=== PATIENT | female | born 1980 | race African-American/Black ===

== ENCOUNTER 2017-06-22 12:21 | Inpatient (IN) | payer OTHER ==
--- NOTE | 2017-06-22 12:30 | PDOC ---
History of Present Illness - General Chief Complaint: Blood Pressure Problem Stated Complaint: ABD PAIN(POSSIBLE 8 MONTHS PREG) Time Seen by Provider: 06/22/17 12:29 History Source: Patient Exam Limitations: No Limitations - History of Present Illness Initial Comments: 06/22/17 13:15 [id number] patient with history of hypertension developed since last 6 years ago and persistent since then, coming for PCp after she was told she was with hypertension and told to come to ER. She wasn't aware she was until today. She just got health insurance back and wasn't able to afford seeing a doctor and getting her prescription (amlodipine and hydrochlorothiazide). Doesn't remember being told she ever had preeclampsia. No history of seizure. LAst was done by . Past History - Past Medical History Allergies/Adverse Reactions: Allergies Allergy/AdvReac Type Severity Reaction Status Date / Time No Known Allergies Allergy Unverified 06/22/17 12:36 Home Medications: Ambulatory Orders Amlodipine Besylate [Norvasc -] 5 mg PO DAILY 06/22/17 Hydrochlorothiazide [Hctz -] 25 mg PO DAILY 06/22/17 Review of Systems - Review of Systems Able to Perform ROS?: Yes Constitutional: No: Symptoms Reported HEENTM: No: Symptoms Reported Respiratory: No: Symptoms reported Cardiac (ROS): No: Symptoms Reported ABD/GI: No: Symptoms Reported : No: Symptoms Reported Musculoskeletal: No: Symptoms Reported Integumentary: No: Symptoms Reported Neurological: No: Symptoms reported Endocrine: No: Symptoms Reported All Other Systems: Reviewed and Negative *Physical Exam - Physical Exam General Appearance: Yes: Nourished, Appropriately Dressed. No: Apparent Distress HEENT: positive: EOMI, ANA, Normal ENT Inspection Neck: positive: Trachea midline, Normal Thyroid. negative: Tender Respiratory/Chest: positive: Lungs Clear, Normal Breath Sounds. negative: Chest Tender Cardiovascular: positive: Regular Rhythm, Regular Rate, S1, S2 Gastrointestinal/Abdominal: positive: Soft, Decreased BS, Protuberent (gravid), Distended, Other (fundus measure at approx 34 weeks). negative: Tender Musculoskeletal: positive: Normal Inspection Extremity: positive: Normal Capillary Refill, Normal Inspection Neurologic: positive: Fully Oriented, Alert, Normal Mood/Affect, Normal Response , Motor Strength 10/28 ED Treatment Course - LABORATORY CBC & Chemistry Diagram: 06/22/17 12:45 06/22/17 12:45 Medical Decision Making - Medical Decision Making 06/22/17 13:26 Determination of gestational age by transabdominal ultrasound labs and urine sent with magnesium to rule out preeclampsia/HELLP 06/22/17 15:00 OBGYN U/s: There is a single live intrauterine with measurements corresponding to a gestational age of 31 weeks 3 days. A heart rate of 138 BPM was calculated. An estimated weight of 4 lbs. 4 oz was also calculated. The placenta is fundal in location. An adequate amount of amniotic fluid is identified within an SERGEY of 15.5 cm. The fetus is in a vertex presentation at the present time. A cervical length of 5.5 cm was also measured. There is a solid mass within the left lateral aspect of the uterus consistent with a leiomyoma. This fibroid measures 4.0 x 3.1 x 3.8 cm BP reduced to 128/80 followed labetalol. All other labs wnl Labor and delivery called. Patient signed out and accepted to l&d *DC/Admit/Observation/Transfer Diagnosis at time of Disposition: 31 to 32 weeks gestation of , Hypertension - Discharge Dispostion Disposition: HOME Admit: Yes - Referrals - Patient Instructions Printed Discharge Instructions: DI for Pre-eclampsia Additional Instructions: Please go directly to labor and delivery upstairs for further evaluation. - Post Discharge Activity
[2017-06-22 12:36] VITALS: BMI 35.1
[2017-06-22] MEDS ORDERED: LABETALOL HCL 5 MG/1 ML (100MG/20 ML VIAL) IVPUSH ONE ×3 (12:58→14:41)
[2017-06-22 13:00] LABS: BASO % 0.7 % (0-2.0); EOS % 2.6 % (0-4.5); HEMATOCRIT 37.9 % (32.4-45.2); HEMOGLOBIN 12.4 GM/dL (10.7-15.3); LYMPH % 17.9 % (8-40); MCH 28.7 pg (25.7-33.7); MCHC 32.7 g/dl (32.0-36.0); MEAN CELL VOLUME 87.8 fl (80-96); MEAN PLT VOLUME 8.6 fl (7.5-11.1); NEUT % 68.8 % (42.8-82.8); PLATELET COUNT 262 K/MM3 (134-434); RBC 4.32 M/mm3 (3.60-5.2); RDW 13.8 % (11.6-15.6); WHITE BLOOD COUNT 7.6 K/mm3 (4.0-10.0)
[2017-06-22] MEDS ORDERED: LABETALOL HCL 5 MG/1 ML (200MG/40ML VIAL) IVPB ONE (13:15)
--- NOTE | 2017-06-22 13:17 | PDOC ---
Attending Attestation - HPI HPI: 06/22/17 13:51 Pt is a 37 yo F () with a PMHx of HTN who presents to the ED with elevated blood pressure today. Patient was seen in her [facility] for care and routine visit. As per EMS, patients urine was positive for protein and was sent to the ED for further evaluation. Patient takes Norvasc for her HTN however stopped it due to her . Patient denies any vaginal bleeding, vaginal discharge or cramping. Upon evaluation, patients vital signs significant for 183/123 BP and 103 HR. - Physicial Exam PE: 06/22/17 13:51 GENERAL: Awake, alert, and fully oriented, in no acute distress HEAD: No signs of trauma EYES: PERRLA, EOMI, sclera anicteric, conjunctiva clear ENT: Auricles normal inspection, hearing grossly normal, nares patent, oropharynx clear without exudates. Moist mucosa NECK: Normal ROM, supple, no lymphadenopathy, JVD, or masses LUNGS: Breath sounds equal, clear to auscultation bilaterally. No wheezes, and no crackles HEART: Regular rate and rhythm, normal S1 and S2, no murmurs, rubs or gallops ABDOMEN: +Gravid abdomen. Soft, nontender, normoactive bowel sounds. No guarding, no rebound. No masses EXTREMITIES: Normal range of motion. No clubbing or cyanosis. No cords, erythema, or tenderness. 1+ pitting edema bilaterally. NEUROLOGICAL: Cranial nerves II through XII grossly intact. Normal speech, normal gait SKIN: Warm, Dry, normal turgor, no rashes or lesions noted. - Medical Decision Making 06/22/17 13:51 Documentation prepared by Saira Duvall, acting as biomedical engineering technologist for Keith Vicente MD, MD/DO. <Saira Duvall - Last Filed: 06/22/17 13:51> - Resident Resident Name: Sergio Simeon - ED Attending Attestation I have performed the following: I have examined & evaluated the patient, The case was reviewed & discussed with the resident, I agree w/resident's findings & plan, Exceptions are as noted - Medical Decision Making 06/22/17 13:14 A portion of this note was written by my scribe, under my supervision. 37-year-old female with past medical history of hypertension, sent in from her doctor's office for elevated blood pressures in . The patient is unsure how long she may have been for. She had recently had no insurance but recently obtained insurance. She went to visit her doctor's office for routine visit and noted that she had elevated blood pressures and she tested positive and had 2+ on proteins in dipstick. Patient denies other symptoms of chest pain, short of breath, abdominal pain, vaginal bleeding. Was sent to the ED for further evaluation. She reports that she has not been taking her blood pressure medications as she had no insurance. Patient appears likely to be in third trimester. However, we will need to confirm with an ultrasound. We will attempt to control the blood pressure with labetalol. Labs, urinalysis to rule out hellp syndrome. Ultimately, the patient should be dispositioned to labor and delivery for heart monitoring and further [facility] [facility] management. 06/22/17 14:27 Ultrasound demonstrates single live uterine gestation at 31 weeks and 3 days. heart rates 138 bpm. Adequate amount of amniotic fluid. Also noticed is fibroid. CBC, BMP 06/22/17 12:45 06/22/17 12:45 CMP Sodium 138 mmol/L (136-145) 06/22/17 12:45 Potassium 4.4 mmol/L (3.5-5.1) 06/22/17 12:45 Chloride 104 mmol/L (98-107) 06/22/17 12:45 Carbon Dioxide 25 mmol/L (21-32) 06/22/17 12:45 Anion Gap 9 (8-16) 06/22/17 12:45 BUN 9 mg/dL (7-18) 06/22/17 12:45 Creatinine 0.7 mg/dL (0.55-1.02) 06/22/17 12:45 Creat Clearance w eGFR > 60 (>60) 06/22/17 12:45 Random Glucose 79 mg/dL (74-106) 06/22/17 12:45 Calcium 9.2 mg/dL (8.5-10.1) 06/22/17 12:45 Magnesium 1.9 mg/dL (1.8-2.4) 06/22/17 12:45 Total Bilirubin 0.2 mg/dL (0.2-1.0) 06/22/17 12:45 AST 17 U/L (15-37) 06/22/17 12:45 ALT 19 U/L (12-78) 06/22/17 12:45 Alkaline Phosphatase 177 U/L (45-117) H 06/22/17 12:45 Total Protein 6.3 g/dl (6.4-8.2) L 06/22/17 12:45 Albumin 2.4 g/dl (3.4-5.0) L 06/22/17 12:45 Beta HCG, Quant 13393.9 mIU/ml 06/22/17 12:45 Urine Test Results Urine Color Straw 06/22/17 13:34 Urine Appearance Slcloudy 06/22/17 13:34 Urine pH 7.0 (5.0-8.0) 06/22/17 13:34 Ur Specific Moro 1.006 (1.001-1.035) 06/22/17 13:34 Urine Protein Negative (NEGATIVE) 06/22/17 13:34 Urine Glucose (UA) Negative (NEGATIVE) 06/22/17 13:34 Urine Ketones Negative (NEGATIVE) 06/22/17 13:34 Urine Blood 1+ (NEGATIVE) H 06/22/17 13:34 Urine Nitrite Negative (NEGATIVE) 06/22/17 13:34 Urine Bilirubin Negative (NEGATIVE) 06/22/17 13:34 Bp is improving. Will send the patient to L&D for further management. <Keith Vicente - Last Filed: 06/22/17 14:27>
[2017-06-22 13:40] LABS: ALBUMIN 2.4 g/dl (3.4-5.0); ALK PHOS 177 U/L (45-117); ANION GAP 9 (8-16); BILIRUBIN,TOTAL 0.2 mg/dL (0.2-1.0); BLOOD UREA NITROGEN 9 mg/dL (7-18); CALCIUM 9.2 mg/dL (8.5-10.1); CHLORIDE 104 mmol/L (98-107); CO2 25 mmol/L (21-32); CREATININE 0.7 mg/dL (0.55-1.02); GLUCOSE,RANDOM 79 mg/dL (74-106); MAGNESIUM 1.9 mg/dL (1.8-2.4); POTASSIUM 4.4 mmol/L (3.5-5.1); SGOT/AST 17 U/L (15-37); SGPT/ALT 19 U/L (12-78); SODIUM 138 mmol/L (136-145); TOT PROT 6.3 g/dl (6.4-8.2)
[2017-06-22 14:14] LABS: URINE APPEARANCE SLCLOUDY; URINE BILIRUBIN NEGATIVE (NEGATIVE); URINE BLOOD 1+ (NEGATIVE); URINE COLOR STRAW; URINE GLUCOSE (UA) NEGATIVE (NEGATIVE); URINE KETONE NEGATIVE (NEGATIVE); URINE LEUK ESTERASE 2+ (NEGATIVE); URINE NITRITE NEGATIVE (NEGATIVE); URINE PROTEIN NEGATIVE (NEGATIVE); URINE UROBILINOGEN NEGATIVE mg/dL (0.2-1.0)
[2017-06-22 14:34] LABS: EPI CELLS RARE /HPF (FEW); URINE BACTERIA MODERATE /hpf (NONE SEEN); URINE MUCUS RARE; YEAST RARE
[2017-06-22] MEDS ORDERED: MAGNESIUM IVPB ONE (15:45)
[2017-06-22] MEDS ORDERED: SODIUM CHLORIDE 1,000 ML IV SCH (16:45)
[2017-06-22] MEDS ORDERED: LABETALOL HCL 200 MG TABLET (FP) ONE (17:08)
[2017-06-22] MEDS ORDERED: LABETALOL HCL 200 MG TABLET (FP) PO ONE (17:15)
--- NOTE | 2017-06-22 17:30 | HP ---
Past Medical History - Primary Care Physician PCP:: Deepa Oneill - Admission Chief Complaint: 37 yrs , pt is sent from ER as 31 weeks with Hypertension , , after treating her three times with IV labetalol 10 mg at 13.38 , 14.09 & 14.48 hr . In ER upon arrival BP recorded was 182/123, 163/127, 147/ 105, 146/101 after treatmment BP are recorded 140/93, 134/87, 136/90. after interrogation pt is upset BP again is 163/102,, 142/103 History of Present Illness: patient states she found out today that she was . she has h/o [place] hypertension for 6 years .. she is not on any meds for htn for past 1 year due to lack of insurance she went to see her PCP at [facility] last week , she was prescribed Norvasc 5 mg po daily, today she went for follow up . at 10.00 am [facility] in pcp off BP recorded 215/145 . pt denies any symptoms of headache or vomiting or blurred vision . She was prescribed HCTZ 25 mg . pt presented in the ER at [facility] by [facility] . diagnozed , sonogram was done reported as 31.3/7 weeks, sliup, fundal placenta, vx presentation , SERGEY 15.6cm , efw 4'4", cervical length 5.5cm also lt lateral leiomyoma 4x2.3x3.8 cm noted NO H/O CARE History Source: Patient Limitations to Obtaining History: No Limitations - Past Medical History EMERGENCY DEPARTMENT: No: Seizure, Syncope, TIA Cardiovascular: Yes: HTN (6 YEARS since last in 08/2010) Pulmonary: No: Asthma, Bronchitis, COPD Gastrointestinal: No: Gastritis Hepatobiliary: No: Cholelithiasis, Cholecystitis Renal/: No: UTI Reproductive: Yes: Other (patient states she had regular periods , she itz not pay attention whether she was not getting any periods . she felt baby move few weeks ago). No: PID ...: 5 ...Para: 3 ...Term: 3 ...: 0 ...Spon : 0 ...Induced : 1 ...Multiple Gestation: 0 ...EDC by Sono: 08/21/17 (31.3 weeks by 06/22/17 tamar ) Additional OB History: G1 1999 [facility]. G2 2006 [facility]. G3 08/2010 PRIMARY C/SECTION LFTC/S due to hypertension 6lbs [facility] Heme/Onc: Yes: Anemia Psych: Yes: Other (pt denies h/o mental health issuses . she has h/o seeing psychiatrist in past, does not knpw her diagnosis) Endocrine: No: Diabetes Mellitus - Past Surgical History Past Surgical History: Yes: (08/2010) Hx Myomectomy: No Hx Transabdominal Cerclage: No - Smoking History Smoking history: Never smoked Have you smoked in the past 12 months: No - Alcohol/Substance Use Hx Alcohol Use: No History of Substance Use: reports: None - Social History Other Social History: patient does not have custody of her children due to CPS case in past Home Medications - Allergies Allergies/Adverse Reactions: Allergies Allergy/AdvReac Type Severity Reaction Status Date / Time No Known Allergies Allergy Unverified 06/22/17 16:05 - Home Medications Home Medications: Ambulatory Orders Amlodipine Besylate [Norvasc -] 5 mg PO DAILY 06/22/17 Hydrochlorothiazide [Hctz -] 25 mg PO DAILY 06/22/17 Physical Exam - Maternity Vital Signs: Vital Signs Temperature 99.0 F 06/22/17 15:40 Pulse Rate 97 H 06/22/17 17:15 Respiratory Rate 20 06/22/17 17:15 Blood Pressure 142/103 06/22/17 17:15 O2 Sat by Pulse Oximetry (%) 98 06/22/17 15:02 Selected Entries 06/22/17 06/22/17 06/22/17 16:00 16:15 16:30 Pulse Rate 93 H 96 H 94 H Blood Pressure 140/93 134/87 136/92 06/22/17 17:00 Pulse Rate 107 H Blood Pressure 163/108 Constitutional: Yes: Well Nourished Eyes: Yes: WNL, Conjunctiva Clear HENT: Yes: WNL Neck: Yes: WNL Cardiovascular: Yes: WNL, Regular Rate and Rhythm Lungs: Clear to auscultation Breast(s): Yes: WNL - Abdominal Exam/OB Fundal Height: 30 Number of Fetuses: Single Presentation: Vertex Contractions: No Regularity: Irritability Heart Rate (range): 130-140 Heart Rate Location: [facility] Category: I Accelerations: Uniform - Vaginal Exam/OB Vaginal Bleediing: No Dilatation (cm): close Effacement (%): unefface Amniotic Membrane Status: Intact Presentation: Vertex/Position Station: -4 - Physical Exam Musculoskeletal: Yes: WNL Extremities: Yes: WNL. No: Calf Tenderness Edema: No Integumentary: Yes: Incision (old pfannensteil scar) Deep Tendon Reflex Grade: Normal +2 ...Motor Strength: WNL Psychiatric: Yes: WNL, Alert, Oriented - Labs Lab Results: CBC, BMP 06/22/17 12:45 Laboratory Tests 06/22/17 06/22/17 12:45 13:34 Sodium 138 Potassium 4.4 Chloride 104 Carbon Dioxide 25 BUN 9 Creatinine 0.7 Random Glucose 79 Calcium 9.2 Magnesium 1.9 AST 17 ALT 19 Total Protein 6.3 L Albumin 2.4 L Urine Protein Negative Laboratory Tests 06/22/17 06/22/17 16:30 16:30 Uric Acid 4.6 GGT 26 Problem List - Problems (1) 31 to 32 weeks gestation of Code(s): [id number] - (2) Chronic hypertension affecting Code(s): O10.919 - UNSP PRE-EXISTING HTN COMP , UNSP TRIMESTER (3) Previous section Code(s): Z98.891 - HISTORY OF UTERINE SCAR FROM PREVIOUS SURGERY (4) Substance abuse Code(s): F19.10 - OTHER PSYCHOACTIVE SUBSTANCE ABUSE, UNCOMPLICATED Assessment/Plan 37 yrs , no care, chr htn with ac exacerbations, no evidence of preclempsia , previous c/section Plan monitotr BP I do not see need to give MgSo4 ov , . I will try to transfer her to tertiary care cr . 6.20 [address] [facility] DR Ray notified about the patient's condition he accepted the transfer, recommends MgSo4 due to ac exacerbation of BP on chr htn she will be given Betamthasone at medical cr. 7.55 pm pt is transferred to [facility] by [facility] on MgSo4 drip.
[2017-06-22 17:31] LABS: BASO % 0.6 % (0-2.0); HEMATOCRIT 35.1 % (32.4-45.2); HEMOGLOBIN 11.9 GM/dL (10.7-15.3); LYMPH % 21.5 % (8-40); MCH 29.8 pg (25.7-33.7); MCHC 33.8 g/dl (32.0-36.0); MEAN CELL VOLUME 88.1 fl (80-96); MEAN PLT VOLUME 9.3 fl (7.5-11.1); MONO % 9.4 % (3.8-10.2); NEUT % 65.5 % (42.8-82.8); PLATELET COUNT 259 K/MM3 (134-434); RBC 3.98 M/mm3 (3.60-5.2); RDW 14.2 % (11.6-15.6); WHITE BLOOD COUNT 6.3 K/mm3 (4.0-10.0)
[2017-06-22 17:48] LABS: INR 0.92 (0.82-1.09); PROTHROMBIN TIME (PATIENT) 10.4 SEC (9.98-11.88)
[2017-06-22 17:51] LABS: ACTIVATED PTT 30.6 SECONDS (26.9-34.4)
[2017-06-22 17:57] LABS: GAMMA GLUTAMYL TRANSPEPTIDASE 26 U/L (5-85); SGOT/AST 15 U/L (15-37); SGPT/ALT 20 U/L (12-78)
[2017-06-22 17:58] LABS: ALBUMIN 2.3 g/dl (3.4-5.0); ANION GAP 9 (8-16); BILIRUBIN,TOTAL 0.3 mg/dL (0.2-1.0); BLOOD UREA NITROGEN 10 mg/dL (7-18); CALCIUM 8.2 mg/dL (8.5-10.1); CHLORIDE 105 mmol/L (98-107); CO2 25 mmol/L (21-32); CREATININE 0.7 mg/dL (0.55-1.02); GLUCOSE,RANDOM 70 mg/dL (74-106); POTASSIUM 3.8 mmol/L (3.5-5.1); SGOT/AST 17 U/L (15-37); SGPT/ALT 23 U/L (12-78); SODIUM 139 mmol/L (136-145); URIC ACID 4.6 mg/dL (2.6-7.2)
[2017-06-22 17:59] LABS: ALK PHOS 168 U/L (45-117)
[2017-06-22] MEDS ORDERED: MAGNESIUM SULFATE 20GM/500ML - 20 GM/500 ML INFUS.BAG IVPB SCH (18:30)
[2017-06-22] MEDS ORDERED: MAGNESIUM 4GM/H20 - 4 GM/100 ML IVPB IVPB SCH (18:30)
[2017-06-22] MEDS ORDERED: MAGNESIUM 4GM/H20 - 4 GM/100 ML IVPB IVPB ONE (18:38)
[2017-06-22 18:48] VITALS: TEMP 98.9
[2017-06-22] MEDS ORDERED: MAGNESIUM SULFATE 20GM/500ML - 20 GM/500 ML INFUS.BAG ONE (19:19)
[2017-06-22 21:22] LABS: COCAINE, UR NEGATIVE ng/ml (CUTOFF=300); URINE AMPHETAMINES NEGATIVE ng/ml (CUTOFF=500); URINE BARBITURATES NEGATIVE ng/ml (CUTOFF=200); URINE BENZODIAZEPINES NEGATIVE ng/ml (CUTOFF=200)
[2017-06-22 21:23] LABS: METHADONE, UR NEGATIVE ng/ml (CUTOFF=300); OPIATES, URI NEGATIVE ng/ml (CUTOFF=300); PHENCYCLIDINE,URINE NEGATIVE ng/ml (CUTOFF=25)
[2017-06-22 21:33] LABS: URINE APPEARANCE SLCLOUDY; URINE BILIRUBIN NEGATIVE (NEGATIVE); URINE BLOOD NEGATIVE (NEGATIVE); URINE COLOR YELLOW; URINE GLUCOSE (UA) NEGATIVE (NEGATIVE); URINE KETONE NEGATIVE (NEGATIVE); URINE LEUK ESTERASE 1+ (NEGATIVE); URINE NITRITE NEGATIVE (NEGATIVE); URINE PROTEIN 1+ (NEGATIVE); URINE UROBILINOGEN NEGATIVE mg/dL (0.2-1.0)
[2017-06-22 21:39] LABS: URINE HYALINE CAST 2 /lpf; URINE MUCUS MANY
[2017-06-22 23:00] VITALS: BP 133/93; PULSE 94
--- NOTE | 2017-06-23 09:47 | EKG ---
Test Reason : Blood Pressure : / mmHG Vent. Rate : 096 BPM Atrial Rate : 096 BPM P-R Int : 138 ms QRS Dur : 074 ms QT Int : 352 ms P-R-T Axes : 063 033 004 degrees QTc Int : 444 ms NORMAL SINUS RHYTHM NORMAL ECG WHEN COMPARED WITH ECG OF 27-AUG-2010 09:00, NO SIGNIFICANT CHANGE WAS FOUND Confirmed by NANCY ROMERO MD ([id number]) on 06/23/2017 9:46:55 AM Referred By: AMANDEEP Confirmed By:NANCY ROMERO MD
[2017-06-24 06:11] LABS: HBsAG SCREEN Negative (Negative)
[2017-06-24 14:14] LABS: RUBELLA IgG ANTIBODY 1.91 index (Immune >0.99)
== END 2017-06-22 20:00 | disposition short-term general hospital (02) | DRG 566 ==
LOC: JER 12:21 → JLDR 15:32
PROVIDERS: ADMIT Obstetrics & Gynecology; ATTEND Obstetrics & Gynecology
DX: O10.013 Pre-existing essential hypertension complicating pregnancy, third trimester (principal); O34.211 Maternal care for low transverse scar from previous cesarean delivery; O34.13 Maternal care for benign tumor of corpus uteri, third trimester; D25.0 Submucous leiomyoma of uterus; O09.33 Supervision of pregnancy with insufficient antenatal care, third trimester; O99.343 Other mental disorders complicating pregnancy, third trimester; F29 Unspecified psychosis not due to a substance or known physiological condition; Z3A.31 31 weeks gestation of pregnancy; O13.3 Gestational [pregnancy-induced] hypertension without significant proteinuria, third trimester; F19.20 Other psychoactive substance dependence, uncomplicated
CPT/HCPCS: 36415; 76815-TC; 80053; 80307; 81003; 81015; 82977; 83010; 83735; 84450; 84460; 84550; 84702; 85025; 85044; 85610; 85730; 86593; 86762; 87340; 87389; 93005; 93010; 99284-25; G0480